=== PATIENT | male | born 1990 | race Hispanic/Latino ===

== ENCOUNTER 2021-10-21 10:59 | Emergency (ER) | payer SELFPAY ==
[2021-10-21 11:12] VITALS: BP 131/65; PULSE 64; RESP 16; TEMP 37; O2SAT 99
--- NOTE | 2021-10-21 11:20 | ED.LOWEXIN ---
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 He has developed open wounds to bilateral lower legs anteriorly with redness no drainage noted Patient has been applying some OTC antibiotic ointment to wound, presently open to air. MD complaint: other (skin injuries to bilateral anterior lower legs at [place] area due to concrete dust) Onset (ago): day(s) (Tuesday 4 days) Type of Injury: other (wounds) Treatments prior to arrival: other (antibiotic ointment) Related Data Allergies Allergy/AdvReac Type Severity Reaction Status Date / Time Penicillins Allergy Severe swelling Verified 10/21/21 11:14 Review of Systems Review of Systems: CONSTITUTIONAL: Denies fever, chills, or sweats. EYES: Denies visual changes, redness, or discharge. ENT: Denies rhinorrhea, congestion, sore throat, or otalgia. CARDIOVASCULAR: Denies chest pain, palpitations, or edema. RESPIRATORY: Denies cough or dyspnea. GASTROINTESTINAL: Denies abdominal pain, nausea, vomiting, or diarrhea. GENITOURINARY: Denies dysuria or hematuria. SKIN: Open skin lesions to anterior [place] regions bilaterally occurred after working with concrete MUSCULOSKELETAL: Denies back pain, joint pain, or myalgia. NEUROLOGIC: Denies headache, numbness, or weakness. PSYCHIATRIC: Denies anxiety or depression. All systems reviewed & are unremarkable except as noted in HPI and below PMFSH Past Medical History Medical History (Updated 10/22/21 @ 17:29 by Aidee Soriano NP) No pertinent past medical history Surgical History Surgical History (Updated 10/22/21 @ 17:29 by Aidee Soriano NP) No pertinent past surgical history Social History Social History (Updated 10/21/21 @ 11:52 by Aidee Soriano NP) Smoking status: Never smoker Alcohol intake: current Alcohol use details: social Substance use: never Living arrangements: with family Gender identity (if verbalized by the patient): Male Comments At time of signature, agree with nursing past medical, surgical, social and family history. There is no relevant family history pertinent to the presenting complaint Exam Narrative: GENERAL: Well-appearing, well-nourished, and in no acute distress. HEAD: Normocephalic, atraumatic. EYES: PERRLA and EOMI. ENT: Nares clear, no rhinorrhea or epistaxis. Mucous membranes moist. TM's normal throat pink with no lesions or swelling. NECK: Supple.no lymphadenopathy CHEST: Clear to auscultation. No respiratory distress.SAO2 99% on room air HEART: Regular rate and rhythm. No murmur heard. Normal peripheral pulses. ABDOMEN: Soft, nontender, nondistended, normal active bowel sounds. EXTREMITIES: Normal range of motion. No edema. SKIN: Warm, dry, no rash. open wounds to anterior [place] region to bilateral lower legs no drainage noted. right lateral area 8cm X2.5cm medial area [id number] left anterior [place] area 5cmX1.5cm. tissue red with no eschar noted no drainage from wounds. NEURO: No focal deficits. Alert and oriented x3. Course Course Level of Care: Express Care Visit Vital Signs Vital signs: Vital Signs Temperature 37.0 C 10/21/21 11:12 Pulse Rate 64 10/21/21 11:12 Respiratory Rate 16 10/21/21 11:12 Blood Pressure 131/65 10/21/21 11:12 Pulse Oximetry 99 10/21/21 11:12 Oxygen Delivery Room Air 10/21/21 11:12 Temperature 37.0 C 10/21/21 11:12 Pulse Rate 64 10/21/21 11:12 Respiratory Rate 16 10/21/21 11:12 Blood Pressure 131/65
== END 2021-10-21 11:48 | disposition home or self-care (01) ==
PROVIDERS: Emergency Provider Registered Nurse
DX: L03.116 Cellulitis of left lower limb (principal); L03.115 Cellulitis of right lower limb; L02.416 Cutaneous abscess of left lower limb; L02.415 Cutaneous abscess of right lower limb; L24.89 Irritant contact dermatitis due to other agents
CPT/HCPCS: 99213; G0463